=== PATIENT | male | born 1970 | race American Indian/Alaskan Native ===

== ENCOUNTER 2017-05-16 07:18 | Day surgery (SDC) | payer MEDICAID ==
[2017-02-22 15:24] VITALS: BMI 27.3
[2017-05-16] MEDS ORDERED: Lactated Ringer's 1,000 ML IV ONE ×2 (08:59→12:45)
[2017-05-16] MEDS ORDERED: Lidocaine 4% (Laryng-O-Jet) Kit MM ONE (10:17)
[2017-05-16] MEDS ORDERED: Propofol 10 mg/ml Inj (20 ML) ONE (10:17)
[2017-05-16] MEDS ORDERED: Bupivacaine 0.5% Inj(30mL) ONE (10:50)
[2017-05-16] MEDS ORDERED: Lidocaine 1% Inj (20ml) ONE (10:50)
[2017-05-16] MEDS ORDERED: Lidocaine 2% w Epi 1:100,000 Inj IJ ONE ×2 (10:51→12:35)
[2017-05-16] MEDS ORDERED: Ropivacaine 0.5% 30ML IV ONE (11:03)
[2017-05-16] MEDS ORDERED: Dexamethasone 4 mg/1 ml ONE ×2 (11:06→11:57)
[2017-05-16] MEDS ORDERED: Midazolam 2 MG/2 ML VIAL ONE (11:08)
[2017-05-16] MEDS ORDERED: Phenylephrine 10 mg/ml Inj ONE (11:08)
[2017-05-16] MEDS ORDERED: Succinylcholine 200 mg/10 ml Inj IV ONE (11:09)
[2017-05-16] MEDS ORDERED: Bupivacaine HCl 0.5% PF (30 ml) Inj ONE (11:41)
[2017-05-16] MEDS ORDERED: Rocuronium 10 mg/ml (5 ml) ONE (11:56)
[2017-05-16] MEDS ORDERED: Desflurane Inhalation Anesthetic Liq (240 ml) ONE (12:17)
[2017-05-16] MEDS ORDERED: Neostigmine Methylsulfate 2 MG/2 ML ML IV ONE (13:55)
--- NOTE | 2017-05-16 14:40 | PCM.SURG1 ---
Surgeon's Initial Post Op Note - Surgeon's Notes Surgeon: Reed Goel MD Food Tester: Conor Negron PA-C Type of Anesthesia: General Endo Pre-Operative Diagnosis: Right shoulder rotator cuff tear Operative Findings: see op report Post-Operative Diagnosis: same as pre-op dx Operation Performed: Right shoulder arthroscopy, repair of rotator cuff, subacromial decompression, debriedement, open biceps tenodesis Specimen/Specimens Removed: none Estimated Blood Loss: EBL {In ML}: 15 Date of Surgery/Procedure: 05/16/17 Time of Surgery/Procedure: 13:00
[2017-05-16] MEDS ORDERED: Oxycodone/Acetaminophen 5/325 mg Tab PO PRN (14:42)
[2017-05-16] MEDS ORDERED: HYDROmorphone 0.5 mg/0.5 ml ISec IVP PRN (14:43)
[2017-05-16] MEDS ORDERED: Lactated Ringer's 1,000 ML IV SCH (14:45)
--- NOTE | 2017-05-16 14:50 | PCM.ANESB4 ---
Infraclavicular Block - Femoral Nerve Block Date of Procedure: 05/16/17 Anesthesiologist: Yoselin Pre-Procedure Diagnosis: Right rotator cuff tear Post-Procedure Diagnosis: same Procedure Performed: Brachial Plexus at the Infraclavicular area Right - Procedure Infraclavicular Block: The procedure was explained to the patient that it is for the post-operative pain management. Consent was obtained after a thorough discussion with the patient regarding the benefits and possible complications of local anesthetic block of the brachial plexus at the infraclavicular area. The patient was brought to the operating room and standard monitors were applied. Time-out was held with the circulating nurse to confirm the correct surgery and the appropriate block. After applying oxygen by nasal cannula and administering IV Sedation, patient's head was gently rotated away from the operative ___right____ _ shoulder and the area medial to the coracoid process and inferior to the clavicle was carefully palpated. The ultrasound transducer was then applied to the skin in the transverse plane and the brachial plexus was visualized surrounding the axillary artery and deep to the pectoralis major and minor muscles. After thorough identification, this area was prepped with Betadine solution three times and 1 % Lidocaine was injected subcutaneously for topical anesthesia. At this point, a #21 gauge Stimuplex 4-inch needle was inserted cephalad to the ultrasound transducer and inferior to the clavicle in-plane towards the posterior aspect of the axillary artery. Needle advancement was performed carefully under ultrasound visualization. Nerve stimulator was used and twitch of the affected extremity including fingers, hand, wrist and elbow was obtained at current of __0.5___MA. After repeated negative aspiration, ___2__cc of __0.5_ __% ropivicaine was injected and this was followed with __18 ____ cc of 0.5__ % ropivicaine . Under ultrasound guidance the local anesthetics were observed surrounding the cords of the brachial plexus. The needle was removed intact and sterile dressing was applied. The patient had stable vital signs, was conscious and in no apparent distress. The patient tolerated the infraclavicular block of the brachial plexus well with stable vital signs was prepared for subsequent surgery.
--- NOTE | 2017-05-16 16:12 | OP ---
PROCEDURE DATE: 05/16/2017 ATTENDING PHYSICIAN: Dr. Reed Goel MD. PROFESSOR OF FLORICULTURE: Conor Negron PA-C. PREOPERATIVE DIAGNOSES: 1. Right shoulder full-thickness supraspinatus tear. 2. Synovitis. 3. Impingement. POSTOPERATIVE DIAGNOSES: 1. Right shoulder extensive synovitis. 2. Full-thickness supraspinatus tear. 3. Biceps tendon tear. 4. Subacromial bursitis. 5. Impingement. PROCEDURE: 1. Right shoulder arthroscopic double row rotator cuff repair. 2. Mini open subpectoral biceps tenodesis. 3. Subacromial decompression with acromioplasty. 4. Complete synovectomy. 5. Postop shoulder sling [id number]. ANESTHESIA TYPE: General. EBL: 15 mL. COMPLICATIONS: None. INDICATIONS: After failing a course of nonoperative therapy, the patient elected to undergo the above procedures. In the office the risks and possible complications of the shoulder arthroscopy were discussed in detail with the patient. These risks include, but are not limited to, continued pain, lack of motion, infection, vascular injury, and nerve injury including axillary nerve dysfunction, reflex sympathetic dystrophy, compartment syndrome, limb loss, and . The patient expressed an understanding of the risks and possible benefits of the procedure, and was also made aware of the alternatives to surgery. An informed consent was obtained, and was checked immediately preop. Procedure 1: The patient was correctly identified in the holding area and the right shoulder was marked with the surgeon's initials. The patient was transported to the operating room and placed in the supine position and general anesthesia was obtained and regional interscalene block examined under anesthesia. A preoperative orthopedic examination revealed a passive range of motion of 170 degrees of forward elevation, 60 degrees of external rotation, and 150 degrees of abduction. Stability examination revealed no instability. Examination of the glenohumeral joint revealed: 1. Extensive synovitis. 2. Full-thickness supraspinatus tear. 3. Biceps tendon tear. Excessive glenohumeralsynovitis was cleared with a 4.0 mm full radius shaver. The hypertrophic, erythematous synovium was resected. Hemostasis was maintained with the radiofrequency device. The biceps pathology was addressed with biceps tenodesis. Upon careful arthroscopic evaluation of biceps tendon and its anchor site at the labrum, it was noted to be highly frayed and tears not amenable to repair. Biceps tenotomy was performed using the arthroscopic scissors. Afterwards, a small 2-cm incision was marked within the axillary fold and injected with 2 mL of 1% lidocaine with epinephrine. Skin incision was made using a 15 blade. Deeper dissection was carried out with scissors, and interval between pectoralis major tendon and coracobrachialis. Biceps tendon was identified sitting within the biceps groove. It was removed from the groove and found to be erythematous with intersubstance fraying and tearing. Torn edges of the tendon were incised using 15 blade and a 2.0 FiberLoop was used to whip stitch the tendon. The elbow was taken through flexion and extension to identify the appropriate site of tenodesis within the bicipital groove with proper tensioning of muscle belly. For tenodesis, we used the Arthrexbicortical button. The free ends of FiberLoop were loaded onto the metal cortical button. The diameter of the tendon was measured using the guide. Using appropriate drill bit, bicortical drill hole was made at the top of bicipital groove. Then, using the appropriate size reamer, as determined after measuring the width of biceps tendon, the near cortex was drilled approximately 1.5 cm in depth. The cortical button was loaded on the handle and passed through the drilled hole, then flipped at the far cortex. The biceps tendon was delivered into the drill hole and was sutured and secured with FiberLoop. Normal saline irrigation was used to remove all the debris and loose bodies. Skin edges were brought closer using 2.0 Vicryl sutures and closed 4.0 nylon sutures. Examination of the subacromial space revealed: 1. Extensive bursitis. 2. Impingement. 3. Full-thickness supraspinatus tear that was retracted. Visualization of the subacromial space was difficult due to excessive bursitis. A bursectomy was performed using a combination of radiofrequency device as well as a 4.0-mm full radius motorized shaver. The soft tissue on the undersurface of the acromion was debrided utilizing the 4.0-mm full radius shaver and the radiofrequency device was used for hemostasis. At this point, the coracoacromial ligament was released with the radiofrequency device and the acromial branch of the thoracoacromial artery was coagulated with the same instrument. Subacromial decompression was performed with a 4.0-mm conical tonja using both the medial portal and the "cutting-block" precision acromioplasty technique from the posterior portal. The undersurface of the acromion was resected to a flat, smooth surface to allow unrestricted excursion of the rotator cuff. After adequate subacromial decompression, attention was then turned to the rotator cuff tear, which was easily visualized after adequate bursectomy had been performed. An auxiliary lateral portal was placed 2 cm posterior to the original lateral portal, after a correct "-man's angle" was determined using a transdeltoid 21 gauge spinal needle. Arthroscopic soft tissue releases were performed using an elevator at the coracohumeral ligament insertion and superior glenoid to free up the rotator cuff to provide adequate excursion to support a repair to the greater tuberosity. Next, the greater tuberosity was gently debrided with a combination of the 4.0 mm straight shaver and radiofrequency device, and the bone was denuded to a bleeding surface using the 4.0-mm tonja. The lateral margin of the rotator cuff tear was debrided to a smooth and stable tendon surface using the 4.0-mm shaver. Two 4.5-mm Arthrex corkscrew suture anchors were placed with the proper "-man's angle" into the greater tuberosity, and a mattress suture from each anchor was passed through supraspinatus 10 mm medial to the torn edge. These anchors formed the medial row of the double row repair. The arm was abducted to 70 degrees, and the leading edge of the cuff was drawn to its proper insertion on the greater tuberosity. The #2 FiberWire mattress sutures were tied with standard arthroscopic knot tying techniques - Hang knots and half hitches using a knot pusher. The remaining sutures were secured to the tuberosity with two 4.5-mm PushLock absorbable anchors, which were placed with standard technique into the lateral aspect of the greater tuberosity approximately 1 cm lateral to the medial row anchors. One suture strand from each knot was crossed to the diagonal PushLock anchor along with the suture strand from the corresponding anchor directly medial. This linking of the medial and lateral row formed a "suture bridge" rotator cuff repair. The ends of the remaining sutures were then cut. The shoulder was put through a passive ROM, and the rotator cuff repair was noted to be stable through a ROM of 130/50. No prominence of the suture knots or of rotator cuff tissue was noted to impinge during abduction and internal rotation. Postoperatively, the patient will be maintained in an abduction sling, also provided with my rehab protocol, defining the restriction and sling use for 6-8 weeks. Followup in sling for 6 weeks. During this procedure, I was assisted by Conor Negron, who assisted in positioning the patient on the operating room table as well as transferring the patient from the operating room table to the recovery room stretcher. In addition, Conor Negron, assisted me during the actual operative procedure by positioning the patient's extremity to allow for easier arthroscopic access to all areas of the joint. The presence of Conor Negron, as my operative endodontic assistant, was medically necessary to ensure the utmost safety of the patient in the pre, intra-, and postoperative periods. Reed Goel MD
[2017-05-16 16:31] VITALS: RESP 18
[2017-05-16 18:09] VITALS: O2SAT 97
[2017-05-16 19:13] VITALS: BP 119/75; PULSE 59; TEMP 98.2
== END 2017-05-16 19:40 | disposition home or self-care (01) ==
LOC: H.OPSURG 07:18
PROVIDERS: ATTEND Orthopaedic Surgery
DX: M75.121 Complete rotator cuff tear or rupture of right shoulder, not specified as traumatic (principal); M75.51 Bursitis of right shoulder; M75.41 Impingement syndrome of right shoulder

== ENCOUNTER 2017-11-04 17:45 | Emergency (ER) | payer MEDICAID ==
[2017-11-04 17:45] VITALS: BMI 27.3
[2017-11-04] MEDS ORDERED: Sodium Chloride 0.9% 1,000 ML IV STA (18:45)
--- NOTE | 2017-11-04 18:46 | ED PDOC ---
HPI: Abdomen Time Seen by Provider: 11/04/17 18:19 Chief Complaint (Nursing): Abdominal Pain Chief Complaint (Provider): Abdominal pain, fever History Per: Patient Additional Complaint(s): 47 yo male, PMH of HIV and Asthma, presents to ED with c/o fever, chills, nuasea , diarrhea, abdominal pain and sob since yesterday. Denies vomiting. Pt did get flu shot this year. pt took Dayquil this am, nothing since PMD: Dr. Harvey Past Medical History Reviewed: Nursing Documentation Vital Signs: Last Vital Signs Temp 102.6 F H 11/04/17 18:02 Pulse 96 H 11/04/17 18:02 Resp 18 11/04/17 18:02 BP 173/82 H 11/04/17 18:02 Pulse Ox 99 11/04/17 19:10 - Medical History PMH: Asthma, HIV (2001) Denies: Chronic Kidney Disease - Surgical History Surgical History: Hernia Repair (umbilical hernia repair) - Family History Family History: States: Unknown Family Hx - Social History Current smoker - smoking cessation education provided: No Alcohol: None Drugs: Denies - Immunization History Hx Tetanus Toxoid Vaccination: No Hx Influenza Vaccination: Yes (2014) Hx Pneumococcal Vaccination: Yes - Home Medications Home Medications: Ambulatory Orders Medication Instructions Recorded Famotidine [Pepcid] 20 mg PO BID #14 tab 09/01/15 Hydrocortisone [Hydrocortisone 1 applic TOP TID #1 tube 12/08/15 2.5% Cream] Naproxen [Naprosyn] 500 mg PO BID #20 tab 04/03/16 Emtricitabine/Tenofovir Diso 200 - 300 mg PO DAILY 06/28/16 [Truvada 200 MG-300 MG] oxyCODONE/Acetaminophen [Percocet 5 - 325 mg PO .Q4-6 PRN 05/16/17 5/325 mg Tab] - Allergies Allergies/Adverse Reactions: Allergies Allergy/AdvReac Type Severity Reaction Status Date / Time No Known Allergies Allergy Verified 12/08/15 12:38 Review of Systems ROS Statement: Except As Marked, All Systems Reviewed And Found Negative Constitutional: Positive for: Fever ENT: Positive for: Nose Congestion Respiratory: Positive for: Cough Gastrointestinal: Positive for: Nausea, Abdominal Pain, Diarrhea Physical Exam - Reviewed Nursing Documentation Reviewed: Yes Vital Signs Reviewed: Yes - Physical Exam Appears: Positive for: Well, Non-toxic, No Acute Distress Head Exam: Positive for: ATRAUMATIC, NORMAL INSPECTION, NORMOCEPHALIC Skin: Positive for: Normal Color, Warm, DRY Eye Exam: Positive for: EOMI, Normal appearance, PERRL ENT: Positive for: Normal ENT Inspection Neck: Positive for: Normal, Painless ROM Cardiovascular/Chest: Positive for: Regular Rate, Rhythm Respiratory: Positive for: CNT, Normal Breath Sounds Gastrointestinal/Abdominal: Positive for: Normal Exam, Bowel Sounds, Soft Back: Positive for: Normal Inspection Extremity: Positive for: Normal ROM Neurologic/Psych: Positive for: Alert, Oriented - ECG O2 Sat by Pulse Oximetry: 99 Medical Decision Making Medical Decision Making: Iv access established and treatment initiated with IVF, Motrin, Zofran and bentyl PO Diagnostics ordered. Case endorsed to YOLETTE Francis at 1999 pending diagnostic review and re-eval Disposition - Clinical Impression Clinical Impression: Influenza - Patient ED Disposition Is Patient to be Admitted: Transfer of Care - Disposition Disposition: Transfer of Care Disposition Time: 19:16 Condition: STABLE Forms: [facility] ([place]) - POA Present On Arrival: None
[2017-11-04 19:29] LABS: EOS % 0.3 % (0.0-4.0); HEMOGLOBIN 13.1 g/dL (12.0-18.0); NEUT # 4.7 K/uL (1.8-7.0); NRBC % 0.2 % (0.0-0.0); RED CELL DISTRIBUTION WIDTH 14.2 % (11.5-14.5)
[2017-11-04 19:35] LABS: ALB/GLOB RATIO 1.1 (1.0-2.1); CALCIUM 8.9 mg/dL (8.4-10.2); GFR AFRICAN-AMERICAN > 60; GFR NON-AFRICAN AMERICAN > 60
[2017-11-04 19:47] LABS: BASO % 0.7 % (0.0-2.0); LYMPH # 0.8 K/uL (1.0-4.3); LYMPH % 12.9 % (20.0-40.0); MEAN CELL VOLUME 89.9 fl (80.0-94.0); MEAN CORPUSCULAR HGB CONC 33.3 g/dL (33.0-37.0); MEAN PLATELET VOLUME 9.2 fl (7.2-11.7); MONO # 0.7 K/uL (0.0-0.8); MONO % 11.3 % (0.0-10.0); NEUT % 74.8 % (50.0-75.0); RBC 4.39 Mil/uL (4.40-5.90); WHITE BLOOD COUNT 6.2 K/uL (4.8-10.8)
[2017-11-04 19:50] LABS: VENOUS BLOOD GAS PCO2 44 mmHg (40-60); VENOUS BLOOD GAS PO2 38 mm/Hg (30-55); VENOUS BLOOD PH 7.44 (7.32-7.43)
[2017-11-04 20:02] LABS: ALT/SGPT 36 U/L (21-72); AST/SGOT 39 U/L (17-59); BLOOD UREA NITROGEN 11 mg/dl (9-20)
[2017-11-04 21:06] VITALS: BP 111/78; PULSE 92; RESP 16; TEMP 98.7; O2SAT 98
--- NOTE | 2017-11-05 08:39 | RAD ---
PROCEDURE: CHEST RADIOGRAPH, 1 VIEW HISTORY: cough and fever COMPARISON: Chest radiograph dated 06/17/2016. FINDINGS: LUNGS: Clear. PLEURA: No pneumothorax or pleural fluid seen. CARDIOVASCULAR: Normal. OSSEOUS STRUCTURES: Focal dextro convex curvature of the thoracic spine redemonstrated. No significant abnormalities. VISUALIZED UPPER ABDOMEN: Normal. OTHER FINDINGS: None. IMPRESSION: No active disease.
--- NOTE | 2017-11-05 11:17 | CARD ---
APPROVED REPORT EKG Measurement Heart [id number] <Conclusion> Normal sinus rhythm Nonspecific T wave abnormality Abnormal ECG
== END 2017-11-04 20:50 | disposition home or self-care (01) ==
LOC: H.ER 17:45
DX: J11.1 Influenza due to unidentified influenza virus with other respiratory manifestations (principal); J45.909 Unspecified asthma, uncomplicated
CPT/HCPCS: 71045; 80053; 82803; 84484; 85025; 87040; 87804; 93005; 96374; 99283; J2405; J7040